=== PATIENT | male | born 1980 | race African-American/Black ===

== ENCOUNTER 2017-05-16 17:38 | Emergency (ER) | payer OTHER ==
[~2017-05-16] VITALS: Ht 180.3 cm; Wt 86.4 kg
[2017-05-16] MEDS ORDERED: DIAZEPAM 5 MG/ML 2 ML SYRINGE IVP ONE (21:45)
[2017-05-16] MEDS ORDERED: MAGNESIUM SULFATE 2 GM, MVI, ADULT NO.1 WITH VIT K 10 ML, THIAMINE HCL 100 MG, FOLIC AC... IV ONE ×5 (21:45)
[2017-05-16 22:25] VITALS: BP 129/90
== END 2017-05-16 22:54 | disposition home or self-care (01) ==
LOC: EMS 17:41
DX: F10.239 Alcohol dependence with withdrawal, unspecified (principal); I10 Essential (primary) hypertension; Z76.0 Encounter for issue of repeat prescription; Y90.9 Presence of alcohol in blood, level not specified
CPT/HCPCS: 96365; 96375; 99285; J1885; J3411; J3475; J3490 ×2; J7030